=== PATIENT | male | born 1965 | race Caucasian/White ===

== ENCOUNTER 2017-11-04 09:06 | Day surgery (SDC) | payer BC ==
[2017-10-31 17:36] VITALS: BMI 29.5
[~2017-11-04 09:06] MED LIST: LACTATED RINGERS 1,000 ML IV SCH
[2017-11-04 10:31] VITALS: TEMP 97.8
[2017-11-04] MEDS ORDERED: LACTATED RINGERS 1,000 ML IV ONE ×2 (10:36)
[2017-11-04] MEDS ORDERED: LIDOCAINE 1% 20 ML VIAL (10MG/ML) FOR IV START INTRADERMA ONE (10:36)
[2017-11-04] MEDS ORDERED: PROPOFOL 10 MG/ML 20 ML VIAL IV ONE (11:22)
--- NOTE | 2017-11-04 12:00 | P.PCN ---
Date of Procedure: 11/04/17 Procedure(s) Performed: Procedure: Colonoscopy and polypectomy. Preoperative diagnosis: Rectal bleeding. Postoperative diagnosis: #1 Sigmoid diverticulosis with no evidence of acute diverticulitis or strictures. #2 Low-grade internal hemorrhoids without bleeding at the time of this exam. #3 Sigmoid polyp snared but no large polyps or cancer. Preparation: HalfLytely prep. Sedation: Was provided by anesthesia. Brief clinical history: The patient is a 52-year-old male who is scheduled for this evaluation because of history of painless rectal bleeding. The patient has issues with bowel movements and reports feeding need to go with no consistent results. His bowel movements have been soft. He had colonoscopy with polypectomy in May 2013 that showed adenoma and diverticulosis and internal hemorrhoids. Procedure: With the patient on his left lateral decubitus position and after informed consent and adequate sedation, the perianal area was inspected and it did not show any fissures or fistulas. There were no masses felt on digital rectal examination. The Olympus CF Q160L video colonoscope was then inserted in the rectum in the usual fashion and advanced to the cecum. There were several diverticular orifices seen scattered in the sigmoid with no evidence of acute diverticulitis or strictures. The mucosa appeared healthy. 1 small polyp was seen in the sigmoid which was snared and retrieved by suction but there were no large polyps or cancer. I retroflexed the endoscope in the rectum before the endoscope was withdrawn. Low-grade internal hemorrhoids were noted with no evidence of bleeding. The patient tolerated the procedure well. Plan: The patient was reassured. He will follow-up with you as planned. Discussed dietary measures and local care for hemorrhoids. Further plans based on his course. I anticipate repeating his colonoscopy in 5 years.
[2017-11-04 12:18] VITALS: BP 145/87; PULSE 59; RESP 16
== END 2017-11-04 12:37 | disposition home or self-care (01) ==
LOC: ORWHC2ENDO 09:06
DX: K62.5 Hemorrhage of anus and rectum (principal); K57.30 Diverticulosis of large intestine without perforation or abscess without bleeding; K64.8 Other hemorrhoids; D12.5 Benign neoplasm of sigmoid colon; Z86.010 Personal history of colon polyps
CPT/HCPCS: 88305; 45385; J2704

== ENCOUNTER 2018-12-22 16:15 | Emergency (ER) | payer BC, OTHER ==
[2018-12-22] MEDS ORDERED: LIDOCAINE 1% INJ 10MG/ML (20 ML MDV) SQ ONE (16:32)
[2018-12-22] MEDS ORDERED: DIPH,PERTUS(ACELL)TETVAC-LF 0.5 ML VIAL IM ONE (16:33)
--- NOTE | 2018-12-22 16:38 | ED ---
General Adult HPI - General Chief complaint: Wound/Laceration Stated complaint: Forehead laceration Time Seen by Provider: 12/22/18 16:25 Source: patient Mode of arrival: ambulatory Limitations: no limitations - History of Present Illness Initial comments: Patient is a 53-year-old male presenting to emergency Department with chief complaint of a headache injury. Patient reports he was cutting wood with a log splitter when a piece came and hit him in the head. Patient denies any loss of consciousness, nausea or vomiting headaches. Patient is not on blood thinners. Patient reports a laceration on the forehead. Patient reports he went to the urgent care who sent him to the ED for further evaluation. Patient denies any blurry vision at this time. Patient is unaware of his tetanus status. Patient reports the pain is minimal at this time. - Related Data Home Medications Medication Instructions Recorded Confirmed Multivitamin [Men's Multi-Vitamin] 1 tab PO DAILY 10/31/17 12/22/18 Previous Rx's Medication Instructions Recorded Cephalexin [Keflex] 500 mg PO Q6HR 5 Days #20 cap 12/22/18 Allergies Allergy/AdvReac Type Severity Reaction Status Date / Time No Known Allergies Allergy Verified 12/22/18 17:20 Review of Systems ROS Statement: Those systems with pertinent positive or pertinent negative responses have been documented in the HPI. ROS Other: All systems not noted in ROS Statement are negative. Past Medical History Past Medical History: Hearing Disorder / Deafness Additional Past Medical History / Comment(s): recent rectal bleeding History of Any Multi-Drug Resistant Organisms: None Reported Additional Past Surgical History / Comment(s): colonoscopy Past Anesthesia/Blood Transfusion Reactions: No Reported Reaction Past Psychological History: No Psychological Hx Reported Smoking Status: Former smoker Past Alcohol Use History: Occasional Past Drug Use History: None Reported - Past Family History Mother Additional Family Medical History / Comment(s): brain aneurysm General Exam Limitations: no limitations General appearance: alert, in no apparent distress Head exam: Absent: atraumatic, normocephalic, normal inspection (3 cm laceration on the forehead), other (Negative hemotympanum, negative Fletcher sign, negative periorbital ecchymosis) Eye exam: Present: normal appearance Pupils: Present: normal accommodation ENT exam: Present: normal exam, mucous membranes moist, normal external ear exam Neck exam: Present: normal inspection, full ROM Respiratory exam: Present: normal lung sounds bilaterally Cardiovascular Exam: Present: regular rate, normal rhythm, normal heart sounds Extremities exam: Present: normal inspection, full ROM Back exam: Present: normal inspection, full ROM Neurological exam: Present: alert, oriented X3 Psychiatric exam: Present: normal affect, normal mood Skin exam: Present: warm, intact, normal color Course Vital Signs 12/22/18 12/22/18 16:17 19:10 Temperature 97.9 F 97.8 F Pulse Rate 90 76 Respiratory 18 16 Rate Blood Pressure 145/90 165/92 O2 Sat by Pulse 94 L 98 Oximetry Procedures - Laceration Laceration #1 Consent Obtained: verbal consent Indication: laceration Site: face (Forehead) Size (cm): 3 Description: linear Depth: involves muscle layer Sedation/Analgesia: none Anesthetic Used: lidocaine 1% Anesthesia Technique: local infiltration Amount (mls): 10 Pre-repair: irrigated extensively, deep structures intact, wound margins revised Type of Sutures: nylon, vicryl Size of Sutures: 4-0 Number of Sutures: 12 (4 deep dissolvable sutures, 8 non-dissolvable.) Technique: simple, interrupted Patient Tolerated Procedure: well, no complications Medical Decision Making - Medical Decision Making Patient is a 53-year-old male presenting to emergency Department with a chief complaint of a laceration. Considering the patient's age and force of the impact. CT of the brain was obtained and is negative for acute fractures, dislocations, intracranial hemorrhage or midline shift. The laceration was deep. It was thoroughly irrigated. 4 dissolvable Vicryl sutures were placed. Additionally 8 sutures were placed superficially. Patient advised to return to emergency department in 5 days for suture removal. Patient tolerated the procedure well. Patient was also given 5 days of Keflex. Patient advised to follow proper wound care structures. Strict return parameters were thoroughly discussed with patient was understanding and agreeable. Case discussed physician. Disposition Clinical Impression: Laceration Disposition: HOME SELF-CARE Condition: Stable Instructions (If sedation given, give patient instructions): Care For Your Stitches (DC), Laceration (DC), Care For Your Absorbable Stitches (ED) Additional Instructions: Please see prescribe medication as directed. Please follow up with primary care. Please return to emergency department in 5 days for suture removal. Prescriptions: Cephalexin [Keflex] 500 mg PO Q6HR 5 Days #20 cap Is patient prescribed a controlled substance at d/c from ED?: No Referrals: None,Stated [Primary Care Provider] - 1-2 days Time of Disposition: 18:16
--- NOTE | 2018-12-22 18:27 | CT ---
EXAMINATION TYPE: CT brain coleenine wo con DATE OF EXAM: 12/22/2018 COMPARISON: None HISTORY: head trauma laceration no head or neck complaints CT DLP: 1405.4 mGycm Automated exposure control for dose reduction was used. TECHNIQUE: CT scan of the head and cervical spine are performed without contrast. FINDINGS: The cutaneous/subcutaneous laceration is noted anterior to the frontal bone. It does not ap pear to proceed to the skull. There is no skulll fracture. There is no acute intracranial hemorrhage, mass effect, or midline shif t identified. The ventricles and sulci are within normal limits in size. The globes are intact and the visualized sinuses are clear. Cervical spine is visualized in its entirety from C1 through upper thoracic levels and demonstrates s atisfactory alignment without evidence of acute fracture or dislocation. Prevertebral soft tissue ap pears within normal limits. Trilevel mild and moderate cervical spondylosis changes are noted. The C1 -C2 articulation is unremarkable. IMPRESSION: 1. There is no acute fracture or dislocation evident in the cervical spine. 2. No acute intracranial hemorrhage, mass effect, or midline shift is seen. 3. Soft tissue laceration anterior to the frontal bone noted.
[2018-12-22 19:21] VITALS: BP 165/92; PULSE 76; RESP 16; TEMP 97.8
== END 2018-12-22 19:10 | disposition home or self-care (01) ==
LOC: EC 16:15
DX: S01.81XA Laceration without foreign body of other part of head, initial encounter (principal); H91.90 Unspecified hearing loss, unspecified ear; Z23 Encounter for immunization; Z87.891 Personal history of nicotine dependence; W22.8XXA Striking against or struck by other objects, initial encounter
CPT/HCPCS: 72125; 70450; 90715; 99283; 90471; 12052; J2001